=== PATIENT | male | born 2000 | race African-American/Black ===

== ENCOUNTER 2024-01-18 17:27 | Emergency (ER) | payer MEDICAID ==
[~2024-01-18] VITALS: Ht 188 cm; Wt 88.1 kg
[2024-01-18 18:30] VITALS: BP 107/64; PULSE 110; RESP 18; TEMP 98.7; O2SAT 96
[2024-01-18] MEDS ORDERED: CEPH500C PO (18:59)
[2024-01-18] MEDS ORDERED: IBUP-1455 PO (18:59)
== END 2024-01-18 19:17 | disposition home or self-care (01) ==
LOC: ER 17:27
DX: L02.01 Cutaneous abscess of face (principal)